=== PATIENT | female | born 1950 | race Caucasian/White ===

== ENCOUNTER 2017-01-10 11:50 | Observation (INO) | payer OTHER ==
[~2017-01-10 11:50] MED LIST: 1-ME1LIQ PO; ADVA250A INH; ALBU8I INH; ASPI81TA11 PO; ATOR80TA41 PO; FURO1TAB93 PO; IMDU60TA PO; LISI-363 PO; MONT10 PO; PROT40TA PO; THEO300T31 PO; ZOFR4TAB3 PO; ZOFR4TAB3 SL; ZOLO50TA PO
[2017-01-10 11:55] VITALS: BP 134/67; PULSE 102; RESP 18; TEMP 97.6; O2SAT 97
[2017-01-10] MEDS ORDERED: SODIUM CHLOR 0.9% 1000 ML INJ 1,000 ML IV ONE (12:06)
[2017-01-10] MEDS ORDERED: SODIUM CHLORIDE 0.9% FLUSH 10 ML FLUSH IVF PRN (12:15)
[2017-01-10] MEDS ORDERED: ONDANSETRON HCL 4 MG/2 ML VIAL IVP ONE (12:15)
--- NOTE | 2017-01-10 12:29 | PD ---
HPI Chief Complaint: Dizziness Time Seen by Provider: 11:55 Travel History International Travel<30 days: No Contact w/Intl Traveler<30days: No Traveled to known affect area: No History of Present Illness HPI 66yo F with COPD, CAD, AAA a/p repair present to the ED with c/o episode of syncope at 10am today. Pt states she woke up and was not feeling well. Has been feeling lightheaded. States she was sitting down at a restaurant with her aunt for rhonda and passed out. She states she vomited but does not remember vomiting. Her aunt states her lip looked swollen while the microbiological analyst said she was shaking. Unknown how long she had lost consciousness but she was still sitting in the chair so did not fall or hit her head. Denies any urinary or fecal incontinence. Denies any chest pain, abdominal pain, focal weakness or numbness, headache, visual changes. Pt feels a little sob but feels like she is at her baseline sob with her COPD. Denies any previous similar episodes PFSH Past Medical History AAA: Yes (PER PT "3.6mm" & REPAIRED) Arthritis: Yes (LUMBAR SPINE) Asthma: No Autoimmune Disease: No Heart Rhythm Problems: No Cancer: No Cardiac Catheterization: Yes Cardiovascular Problems: Yes High Cholesterol: Yes Chemotherapy: No Chest Pain: No Congestive Heart Failure: Yes COPD: Yes Cerebrovascular Accident: No Diabetes: No Diminished Hearing: No Endocrine: No Gastrointestinal Disorders: Yes GERD: No Genitourinary: Yes Hiatal Hernia: No Hypertension: Yes Immune Disorder: No Kidney Stones: No Musculoskeletal: Yes (CHRONIC BACK PAIN) Neurologic: No Psychiatric: No Reproductive: No Respiratory: Yes Migraines: No Myocardial Infarction: No Pancreatitis: Yes Radiation Therapy: No Renal Failure: No Seizures: No Sleep Apnea: No Ulcer: No Influenza Vaccination: No PNEUMOCCOCAL Vaccine (Year): 2008 ?: Not Menopausal: Yes Past Surgical History Abdominal Aneurysm Repair: Yes Abdominal Surgery: Yes (AORTIC STENT 2010, ) AICD: No Appendectomy: Yes Arteriovenous Shunt: No Body Medical Devices: LEFT ILLIAC ARTERY STENT, AORTIC STENT, CARDIAC STENT Cholecystectomy: Yes Coronary Stent: Yes (LAD) Ear Surgery: No Endocrine Surgery: No Eye Surgery: No Genitourinary Surgery: Yes (ILLIAC STENT LEFT SIDE 2005) Gynecologic Surgery: No Insulin Pump: No Joint Replacement: No Oral Surgery: No Pacemaker: No Thoracic Surgery: No Tonsillectomy: Yes Valve Replacement: Yes (ILIAC AND RENALSTENT ) Other Surgery: Yes Social History Alcohol Use: No Tobacco Use: Yes (1/2 PPD) Substance Use: No Allergies-Medications (Allergen,Severity, Reaction): Coded Allergies: Benadryl (Verified Allergy, Intermediate, Restlessness, 01/10/17) Pt states restless leg syndrome. Reported Meds & Prescriptions Reported Meds & Active Scripts Active Protonix (Pantoprazole Sodium) 40 Mg Tab 40 Mg PO DAILY 14 Days Zofran ODT (Ondansetron HCl) 4 Mg Tab 4 Mg SL Q6H PRN FOR NAUSEA/VOMITING Reported Breo Ellipta Inh (Fluticasone/Vilanterol) 100-25 Mcg/Act Inh 1 Puff INH DAILY Use daily at the same time. Theophylline ER 12 HR (Theophylline) 300 Mg Tab 300 Mg PO Q12H Protonix (Pantoprazole Sodium) 40 Mg Tab 40 Mg PO DAILY Montelukast (Montelukast Sodium) 10 Mg Tab 10 Mg PO HS Lisinopril 20 Mg Tab 20 Mg PO DAILY Isosorbide Mononitrate ER (Isosorbide Mononitrate) 60 Mg Tab 60 Mg PO DAILY Furosemide 40 Mg Tab 40 Mg PO DAILY Advair Diskus Inh (Fluticasone-Salmeterol Inh) 250-50 Mcg/Blist Aer 1 Puff INH BID Rinse mouth after use. Atorvastatin (Atorvastatin Calcium) 80 Mg Tab 80 Mg PO HS Aspirin Low Dose (Aspirin) 81 Mg Chew 81 Mg CHEW DAILY Montelukast Sodium 10 Mg Tab 10 Mg PO HS Lipitor 80 Mg Tab (Atorvastatin) 80 Mg Tab 1 Tab PO DAILY Aspirin EC 81 mg (Aspirin) 81 Mg Tab 81 Mg PO DAILY Fernando-Dur 300 Mg (Theophylline) 300 Mg Tabcr 300 Mg PO BID Zofran ODT (Ondansetron HCl) 4 Mg Tab 4 Mg PO TID PRN Zoloft (Sertraline HCl) 50 Mg Tab 50 Mg PO DAILY Ventolin Hfa (Albuterol Sulfate) 8 Gm Aero 1 Puff INH Q4 * SHAKE WELL BEFORE USE * 1-Methyl 2-Pyrrolidinone (1-Methyl 2-Pyrrolidone (Bulk)) 10 Mg Tab 10 Mg PO DAILY Lisinopril 20 mg (Lisinopril) 20 Mg Tab 20 Mg PO DAILY Lasix (Furosemide) 40 Mg Tab 40 Mg PO DAILY Imdur (Isosorbide Mononitrate) 60 Mg Tabcr 60 Mg PO DAILY Advair Diskus 250/50 (Salmeterol Xinafoate/Fluticasone) 250 Mcg/50 Mcg Inhp 1 Puff INH BID Review of Systems Except as stated in HPI: all other systems reviewed are Neg Physical Exam Narrative GENERAL: 66yo F not in distress. SKIN: Focused skin assessment warm/dry. HEAD: Atraumatic. Normocephalic. EYES: Pupils equal and round at 3mm bilaterally. EOMI. No scleral icterus. No injection or drainage. ENT: No nasal bleeding or discharge. Mucous membranes pink and moist. NECK: Trachea midline. No JVD. CARDIOVASCULAR: Regular rate and rhythm. No murmur appreciated. RESPIRATORY: No accessory muscle use. Clear to auscultation. Breath sounds equal bilaterally. GASTROINTESTINAL: Abdomen soft, non-tender, nondistended. MUSCULOSKELETAL: No obvious deformities. No clubbing. No cyanosis. No edema. NEUROLOGICAL: Awake and alert. No obvious cranial nerve deficits. Motor grossly within normal limits. Normal speech. PSYCHIATRIC: Appropriate mood and affect; insight and judgment normal. Data Data Last Documented VS Vital Signs Date Time Temp Pulse Resp B/P Pulse Ox O2 Delivery O2 Flow Rate FiO2 01/10/17 12:55 68 16 108/62 71 16 109/57 70 16 114/68 01/10/17 12:50 95 01/10/17 11:55 97.6 Orders Basic Metabolic Panel (Bmp) (01/10/17 12:06) Complete Blood Count With Diff (01/10/17 12:06) Ckmb (Isoenzyme) Profile (01/10/17 12:06) Troponin I (01/10/17 12:06) Act Partial Throm Time (Ptt) (01/10/17 12:06) Prothrombin Time / Inr (Pt) (01/10/17 12:06) Chest, Single Ap (01/10/17 12:06) Ct Brain W/O Iv Contrast(Rout) (01/10/17 12:06) Ecg Monitoring (01/10/17 12:06) Iv Access Insert/Monitor (01/10/17 12:06) Oximetry (01/10/17 12:06) Ondansetron Inj (Zofran Inj) (01/10/17 12:15) Sodium Chloride 0.9% Flush (Ns Flush) (01/10/17 12:15) Sodium Chlor 0.9% 1000 Ml Inj (Ns 1000 M (01/10/17 12:06) Orthostatic Vital Signs (01/10/17 12:06) Diet Heart Healthy (01/10/17 Lunch) Vital Signs (Adult) SAM.Q4H (01/10/17 13:36) Retail Sales Merchandiser Development / Telemetry SAM.Q8H (01/10/17 13:36) Neuro Checks . ORDERED (01/10/17 13:36) Ondansetron Inj (Zofran Inj) (01/10/17 13:45) Admit Order (Ed Use Only) (01/10/17 13:39) Labs Laboratory Tests Test 01/10/17 12:01 White Blood Count 10.9 TH/MM3 Red Blood Count 4.73 MIL/MM3 Hemoglobin 13.9 GM/DL Hematocrit 42.5 % Mean Corpuscular Volume 89.9 FL Mean Corpuscular Hemoglobin 29.5 PG Mean Corpuscular Hemoglobin 32.8 % Concent Red Cell Distribution Width 14.2 % Platelet Count 263 TH/MM3 Mean Platelet Volume 7.5 FL Neutrophils (%) (Auto) 77.1 % Lymphocytes (%) (Auto) 16.0 % Monocytes (%) (Auto) 4.9 % Eosinophils (%) (Auto) 0.8 % Basophils (%) (Auto) 1.2 % Neutrophils # (Auto) 8.5 TH/MM3 Lymphocytes # (Auto) 1.7 TH/MM3 Monocytes # (Auto) 0.5 TH/MM3 Eosinophils # (Auto) 0.1 TH/MM3 Basophils # (Auto) 0.1 TH/MM3 CBC Comment AUTO DIFF Differential Comment AUTO DIFF CONFIRMED Prothrombin Time 10.2 SEC Prothromb Time International 0.9 RATIO Ratio Activated Partial 23.3 SEC Thromboplast Time Sodium Level 139 MEQ/L Potassium Level 4.0 MEQ/L Chloride Level 105 MEQ/L Carbon Dioxide Level 27.0 MEQ/L Anion Gap 7 MEQ/L Blood Urea Nitrogen 21 MG/DL Creatinine 1.50 MG/DL Estimat Glomerular Filtration 35 ML/MIN Rate Random Glucose 118 MG/DL Calcium Level 8.6 MG/DL Total Creatine Kinase 69 U/L Troponin I LESS THAN 0.02 NG/ML MDM Medical Decision Making Medical Screen Exam Complete: Yes Emergency Medical Condition: Yes Interpretation(s) EKG: NSR 88bpm. Normal axis. QTc 427ms. Differential Diagnosis Arrhythmia vs. vasovagal syncope vs. seizure v. aortic insufficiency vs. dehydration Narrative Course 66yo F with episode of syncope. Labs reviewed, no leukocytosis. H/H stable. Troponin negative. BUN/creatinine mildly elevated but at baseline. CXR negative. CT brain showed no acute intracranial abnormality. I discussed with Dr. Wen and accepted to his service for syncope work up. However, pt misunderstood me and does not want to stay overnight. Said she has to go home because of her dog. AMA: The risks of leaving against medical advice without further evaluation treatment were discussed with the patient. These risks include cardiac dysfunction, cardiac dysrhythmia, possible heart attack, possible stroke or . The patient indicated understanding of these risks and appeared to have the capacity to make this decision. Diagnosis Primary Impression: Syncope Qualified Code: R55 - Syncope, unspecified syncope type Admitting Information Admitting Physician Requests: Observation Patient Instructions: General Instructions Departure Forms: Tests/Procedures Additional Instructions: Please return to the ED if you change your mind. Med/Other Pt SpecificInfo: No Change to Meds Disposition: 07 AGAINST MEDICAL ADVICE Condition: Stable Margot Mooney January 10, 2017 12:29
[2017-01-10] MEDS ORDERED: ISOS60TA PO (12:33)
[2017-01-10] MEDS ORDERED: FURO40TA PO (12:33)
[2017-01-10] MEDS ORDERED: LISI-515 PO (12:33)
[2017-01-10] MEDS ORDERED: ATOR1TAB18 PO (12:33)
[2017-01-10] MEDS ORDERED: FLUT1INH INH (12:33)
[2017-01-10] MEDS ORDERED: ADVA250A INH (12:33)
[2017-01-10] MEDS ORDERED: THEO300T30 PO (12:33)
[2017-01-10] MEDS ORDERED: MONT10TA4 PO (12:33)
[2017-01-10] MEDS ORDERED: PROT40TA PO (12:33)
[2017-01-10] MEDS ORDERED: ASPI81CH37 CHEW (12:33)
[2017-01-10 12:46] LABS: AUTOMATED NEUTROPHIL # 8.5 TH/MM3 (1.8-7.7); BASOPHIL # 0.1 TH/MM3 (0-0.2); BASOPHIL % 1.2 % (0.0-2.0); EOSINOPHIL # 0.1 TH/MM3 (0-0.4); EOSINOPHIL % 0.8 % (0.0-4.0); HEMATOCRIT 42.5 % (35.0-46.0); LYMPHOCYTE # 1.7 TH/MM3 (1.0-4.8); MEAN CELL VOLUME 89.9 FL (80.0-100.0); MEAN CORPUSCULAR HEMOGLOBIN 29.5 PG (27.0-34.0); MEAN CORPUSCULAR HGB CONC 32.8 % (32.0-36.0); MONO % 4.9 % (0.0-8.0); NEUT % 77.1 % (16.0-70.0); PLATELET COUNT 263 TH/MM3 (150-450); RED BLOOD COUNT 4.73 MIL/MM3 (4.00-5.30); RED CELL DISTRIBUTION WIDTH 14.2 % (11.6-17.2); WHITE BLOOD COUNT 10.9 TH/MM3 (4.0-11.0)
[2017-01-10 12:47] LABS: HEMO FLAGS AUTO DIFF
[2017-01-10 12:50] VITALS: O2SAT 95
[2017-01-10 12:52] LABS: CHLORIDE 105 MEQ/L (98-107); SODIUM (NA) 139 MEQ/L (136-145)
[2017-01-10 12:55] VITALS: BP_SYST 108; BP_SYST 109; BP_SYST 114; BP_DIAS 57; BP_DIAS 62; BP_DIAS 68; RESP 16
[2017-01-10 12:57] LABS: ANION GAP 7 MEQ/L (5-15); APTT (PATIENT) 23.3 SEC (24.3-30.1); BLOOD UREA NITROGEN 21 MG/DL (7-18); INTERNATIONAL NORMALIZED RATIO 0.9 RATIO; PROTHROMBIN TIME - PATIENT 10.2 SEC (9.8-11.6)
[2017-01-10 13:00] LABS: GLOMERULAR FILTRATION RATE 35 ML/MIN (>89)
[2017-01-10 13:07] LABS: SCAN/DIFF AUTO DIFF CONFIRMED
--- NOTE | 2017-01-10 13:07 | RADHPO ---
EXAM DATE/TIME: 01/10/2017 12:30 [facility] COMPARISON: No previous studies available for comparison. INDICATIONS : Dizziness. RADIATION DOSE: 69.77 CTDIvol (mGy) MEDICAL HISTORY : Hypertension. Chronic obstructive pulmonary disease. SURGICAL HISTORY : Appendectomy. Cholecystectomy. ENCOUNTER: Initial ACUITY: 1 day PAIN SCALE: 0/10 LOCATION: cranial TECHNIQUE: Multiple contiguous axial images were obtained of the head. Using automated exposure control and adj ustment of the mA and/or kV according to patient size, radiation dose was kept as low as reasonably a chievable to obtain optimal diagnostic quality images. FINDINGS: CEREBRUM: Ventricles are normal in size. There is mild periventricular white matter low attenuation most pronou nced in the frontal lobes. No evidence of midline shift, mass lesion, hemorrhage or acute infarction . No extra-axial fluid collections are seen. POSTERIOR FOSSA: The cerebellum and brainstem demonstrate no acute finding. The 4th ventricle is midline. The cerebe llopontine angle is unremarkable. EXTRACRANIAL: Visualized sinuses are clear. SKULL: The calvaria is intact. No evidence of skull fracture. CONCLUSION: 1. No acute intracranial abnormality identified. 2. There is periventricular white matter low attenuation characteristic of chronic microvascular isch emia. Henri Arnold MD on January 10, 2017 at 13:04 Board Certified Radiologist. This report was verified electronically.
[2017-01-10 13:08] LABS: CREATINE KINASE 69 U/L (26-192)
[2017-01-10] MEDS ORDERED: ONDANSETRON HCL 4 MG/2 ML VIAL IV PUSH PRN (13:45)
--- NOTE | 2017-01-10 13:45 | RADHPO ---
EXAM DATE/TIME: 01/10/2017 13:32 [facility] COMPARISON: CHEST SINGLE AP, June 13, 2014, 20:14. INDICATIONS : Shortness of breath. MEDICAL HISTORY : Chronic obstructive pulmonary disease. SURGICAL HISTORY : None. ENCOUNTER: Initial ACUITY: 1 day PAIN SCORE: 0/10 LOCATION: FINDINGS: Portable AP view of the chest demonstrates a normal-sized cardiac silhouette. There is stable interst itial prominence. No effusion, consolidation, or pneumothorax is visualized. Bones and soft tissues d emonstrate no acute finding. CONCLUSION: No acute cardiopulmonary abnormality is identified. Henri Arnold MD on January 10, 2017 at 13:43 Board Certified Radiologist. This report was verified electronically.
--- NOTE | 2017-01-11 08:31 | EKG ---
Date Performed: 01/10/2017 Time Performed: 11:48:28 PTAGE: 66 years EKG: Sinus rhythm Normal ECG PREVIOUS TRACING : 06/13/2014 20.07 No significant change from previous tracing noted. DOCTOR: Kev Kramer Interpretating Date/Time 01/11/2017 08:30:47
--- NOTE | 2017-01-20 23:52 | PD.AMA ---
Against Medical Advice Note Diagnosis: (1) Syncope Discharge Disposition: Against Medical Advice Pt Condition on Discharge: Fair AMA Statement Patient Kaitlin Noel has decided to leave the hospital against medical advice. This patient has the capacity to refuse care and understands the risks of leaving, including permanent disability and/or , and has had an opportunity to ask questions about her condition. The patient has been informed that she may return for care at any time, and follow up has been arranged/advised. Devan Wen MD Jan 20, 2017 23:52
== END 2017-01-10 14:21 | disposition left against medical advice (07) ==
LOC: PHED 11:50 → PHEDA 13:40
PROVIDERS: ADMIT Internal Medicine; ATTEND Internal Medicine
DX: R55 Syncope and collapse (principal); J44.9 Chronic obstructive pulmonary disease, unspecified; I25.10 Atherosclerotic heart disease of native coronary artery without angina pectoris; M47.816 Spondylosis without myelopathy or radiculopathy, lumbar region; I11.0 Hypertensive heart disease with heart failure; I50.9 Heart failure, unspecified; F17.200 Nicotine dependence, unspecified, uncomplicated; E78.00 Pure hypercholesterolemia, unspecified; Z95.5 Presence of coronary angioplasty implant and graft; Z88.8 Allergy status to other drugs, medicaments and biological substances; Z79.82 Long term (current) use of aspirin; Z79.51 Long term (current) use of inhaled steroids; R42 Dizziness and giddiness; R11.10 Vomiting, unspecified; M54.9 Dorsalgia, unspecified; G89.29 Other chronic pain; Z79.899 Other long term (current) drug therapy
CPT/HCPCS: 70450; 71010; 80048; 82550; 84484; 85025; 85610; 85730; 93005; 96374; 99285; G0378; J2405; J7030

== ENCOUNTER 2017-05-19 13:50 | Emergency (ER) | payer OTHER ==
[~2017-05-19] VITALS: Ht 167.6 cm; Wt 73.0 kg
[~2017-05-19 13:50] MED LIST changes: +ASPI81CH37 CHEW; +ATOR1TAB18 PO; +FLUT1INH INH; +FURO40TA PO; +ISOS60TA PO; +LISI-515 PO; +MONT10TA4 PO; +THEO300T30 PO
[2017-05-19 14:00] VITALS: BP 183/84; PULSE 94; RESP 16; TEMP 98.1; O2SAT 98
[2017-05-19] MEDS ORDERED: VITA100064 PO (14:06)
[2017-05-19] MEDS ORDERED: AMLO10TA2 PO (14:06)
--- NOTE | 2017-05-19 14:19 | PD ---
HPI Chief Complaint: Chest Pain Time Seen by Provider: 13:54 Travel History International Travel<30 days: No Contact w/Intl Traveler<30days: No Traveled to known affect area: No History of Present Illness HPI This 66-year-old female is complaining of left upper chest pain. She's been having the pain for about a week. The pain is located in the left upper chest. It is not related to exertion. It has been constant for a week She went to see her primary care physician today. An EKG was done at the office and they were concerned and asked her to come to the emergency department. The pain she has been having is fairly constant. It does get worse at times but she isn't been unable to figure out what it is that makes it worse. She does have a stent in her LAD. She has a stent in the left kidney and she is also had abdominal aortic aneurysm repaired. She says she has had pleurisy in the past and she thought that this may be pleurisy. PFSH Past Medical History AAA: Yes (PER PT "3.6mm" & REPAIRED) Arthritis: Yes (LUMBAR SPINE) Asthma: No Autoimmune Disease: No Heart Rhythm Problems: No Cancer: No Cardiac Catheterization: Yes Cardiovascular Problems: Yes High Cholesterol: Yes Chemotherapy: No Chest Pain: No Congestive Heart Failure: Yes COPD: Yes Cerebrovascular Accident: No Diabetes: No Diminished Hearing: No Endocrine: No Gastrointestinal Disorders: Yes GERD: No Genitourinary: Yes Hiatal Hernia: No Hypertension: Yes Immune Disorder: No Kidney Stones: No Musculoskeletal: Yes (CHRONIC BACK PAIN) Neurologic: No Psychiatric: No Reproductive: No Respiratory: Yes Migraines: No Myocardial Infarction: No Pancreatitis: Yes Radiation Therapy: No Renal Failure: No Seizures: No Sleep Apnea: No Ulcer: No Tetanus Vaccination: Unknown PNEUMOCCOCAL Vaccine (Year): 2008 ?: Not Menopausal: Yes Past Surgical History Abdominal Aneurysm Repair: Yes Abdominal Surgery: Yes (AORTIC STENT 2010, ) AICD: No Appendectomy: Yes Arteriovenous Shunt: No Body Medical Devices: LEFT ILLIAC ARTERY STENT, AORTIC STENT, CARDIAC STENT Cholecystectomy: Yes Coronary Stent: Yes (LAD) Ear Surgery: No Endocrine Surgery: No Eye Surgery: No Genitourinary Surgery: Yes (ILLIAC STENT LEFT SIDE 2005) Gynecologic Surgery: No Insulin Pump: No Joint Replacement: No Oral Surgery: No Pacemaker: No Thoracic Surgery: No Tonsillectomy: Yes Valve Replacement: Yes (ILIAC AND RENALSTENT ) Other Surgery: Yes Social History Alcohol Use: No Tobacco Use: Yes (1/2 PPD) Substance Use: No Allergies-Medications (Allergen,Severity, Reaction): Coded Allergies: diphenhydramine (Unverified Allergy, Intermediate, Restlessness, 05/19/17) Pt states restless leg syndrome. Reported Meds & Prescriptions Reported Meds & Active Scripts Active Reported Amlodipine (Amlodipine Besylate) 10 Mg Tab 10 Mg PO DAILY Vitamin D3 (Cholecalciferol) 1,000 Unit Tab 1,000 Units PO DAILY Breo Ellipta Inh (Fluticasone/Vilanterol) 100-25 Mcg/Act Inh 1 Puff INH DAILY Use daily at the same time. Theophylline ER 12 HR (Theophylline) 300 Mg Tab 300 Mg PO Q12H Protonix (Pantoprazole Sodium) 40 Mg Tab 40 Mg PO DAILY Montelukast (Montelukast Sodium) 10 Mg Tab 10 Mg PO HS Lisinopril 20 Mg Tab 20 Mg PO DAILY Isosorbide Mononitrate ER (Isosorbide Mononitrate) 60 Mg Tab 60 Mg PO DAILY Furosemide 40 Mg Tab 40 Mg PO DAILY Atorvastatin (Atorvastatin Calcium) 80 Mg Tab 80 Mg PO HS Aspirin Low Dose (Aspirin) 81 Mg Chew 81 Mg CHEW DAILY Review of Systems General / Constitutional: No: Fever, Chills Eyes: No: Diploplia, Blurred Vision HENT: No: Headaches, Vertigo Cardiovascular: No: Chest Pain or Discomfort, Palpitations Respiratory: No: Cough Gastrointestinal: No: Nausea, Vomiting Genitourinary: No: Urgency, Frequency Musculoskeletal: No: Myalgias, Arthralgias Skin: No Rash Neurologic: No: Weakness Physical Exam Narrative GENERAL: Well-developed female SKIN: Focused skin assessment warm/dry. HEAD: Atraumatic. Normocephalic. EYES: Pupils equal and round. No scleral icterus. No injection or drainage. ENT: No nasal bleeding or discharge. Mucous membranes pink and moist. NECK: Trachea midline. No JVD. CARDIOVASCULAR: Regular rate and rhythm. No murmur appreciated. There is no chest wall tenderness RESPIRATORY: No accessory muscle use. Clear to auscultation. Breath sounds equal bilaterally. GASTROINTESTINAL: Abdomen soft, non-tender, nondistended. Hepatic and splenic margins not palpable. MUSCULOSKELETAL: No obvious deformities. No clubbing. No cyanosis. No edema. NEUROLOGICAL: Awake and alert. No obvious cranial nerve deficits. Motor grossly within normal limits. Normal speech. PSYCHIATRIC: Appropriate mood and affect; insight and judgment normal. Data Data Last Documented VS Vital Signs Date Time Temp Pulse Resp B/P (MAP) Pulse Ox O2 Delivery O2 Flow Rate FiO2 05/19/17 14:07 82 16 99 Room Air 05/19/17 14:00 98.1 183/84 (117) Orders Orders Electrocardiogram (05/19/17 14:06) Complete Blood Count With Diff (05/19/17 14:06) Comprehensive Metabolic Panel (05/19/17 14:06) Troponin I (05/19/17 14:06) Chest, Pa & Lat (05/19/17 14:06) Labs Laboratory Tests Test 05/19/17 14:15 White Blood Count 8.1 TH/MM3 Red Blood Count 4.68 MIL/MM3 Hemoglobin 13.9 GM/DL Hematocrit 41.9 % Mean Corpuscular Volume 89.4 FL Mean Corpuscular Hemoglobin 29.6 PG Mean Corpuscular Hemoglobin Concent 33.1 % Red Cell Distribution Width 13.6 % Platelet Count 358 TH/MM3 Mean Platelet Volume 6.7 FL Neutrophils (%) (Auto) 59.8 % Lymphocytes (%) (Auto) 31.2 % Monocytes (%) (Auto) 6.5 % Eosinophils (%) (Auto) 2.3 % Basophils (%) (Auto) 0.2 % Neutrophils # (Auto) 4.9 TH/MM3 Lymphocytes # (Auto) 2.5 TH/MM3 Monocytes # (Auto) 0.5 TH/MM3 Eosinophils # (Auto) 0.2 TH/MM3 Basophils # (Auto) 0.0 TH/MM3 CBC Comment DIFF FINAL Differential Comment Blood Urea Nitrogen 16 MG/DL Creatinine 1.30 MG/DL Random Glucose 85 MG/DL Total Protein 7.9 GM/DL Albumin 3.5 GM/DL Calcium Level 9.0 MG/DL Alkaline Phosphatase 88 U/L Aspartate Amino Transf (AST/SGOT) 13 U/L Alanine Aminotransferase (ALT/SGPT) 16 U/L Total Bilirubin 0.2 MG/DL Sodium Level 135 MEQ/L Potassium Level 3.9 MEQ/L Chloride Level 104 MEQ/L Carbon Dioxide Level 24.8 MEQ/L Anion Gap 6 MEQ/L Estimat Glomerular Filtration Rate 41 ML/MIN Troponin I LESS THAN 0.02 NG/ML MDM Medical Decision Making Medical Screen Exam Complete: Yes Emergency Medical Condition: Yes Medical Record Reviewed: Yes Differential Diagnosis Differential includes coronary artery disease, pleurisy, atypical chest pain Narrative Course EKG shows sinus rhythm without acute changes. Troponin is normal. Chest x-ray is negative. Patient does not feel like this pain is related to her heart it has been going on for a week and has been fairly constant and she has normal studies. I doubt it is related to coronary artery disease. Chest pain admission was offered but the patient for her to go home and I think it is reasonable. He has been taking some Tylenol without much response. She cannot take anti-inflammatories. I will prescribe some Lortab Diagnosis Primary Impression: Atypical chest pain Scripts Hydrocodone-Acetaminophen (Lortab) 5-325 Mg Tab 1-2 TAB PO Q6H Y for PAIN, #20 TAB 0 Refills Prov: Arun Vila MD 05/19/17 Disposition: DISCHARGE HOME Condition: Stable Arun Vila MD May 19, 2017 14:19
[2017-05-19 14:37] LABS: CHLORIDE 104 MEQ/L (98-107); POTASSIUM 3.9 MEQ/L (3.5-5.1); SODIUM (NA) 135 MEQ/L (136-145)
[2017-05-19 14:41] LABS: ANION GAP 6 MEQ/L (5-15); BICARBONATE 24.8 MEQ/L (21.0-32.0); BLOOD UREA NITROGEN 16 MG/DL (7-18)
[2017-05-19 14:42] LABS: AUTOMATED NEUTROPHIL # 4.9 TH/MM3 (1.8-7.7); BASOPHIL % 0.2 % (0.0-2.0); EOSINOPHIL # 0.2 TH/MM3 (0-0.4); EOSINOPHIL % 2.3 % (0.0-4.0); HEMATOCRIT 41.9 % (35.0-46.0); HEMO FLAGS DIFF FINAL; LYMPH % 31.2 % (9.0-44.0); LYMPHOCYTE # 2.5 TH/MM3 (1.0-4.8); MEAN CELL VOLUME 89.4 FL (80.0-100.0); MEAN CORPUSCULAR HEMOGLOBIN 29.6 PG (27.0-34.0); MEAN CORPUSCULAR HGB CONC 33.1 % (32.0-36.0); MONO % 6.5 % (0.0-8.0); NEUT % 59.8 % (16.0-70.0); PLATELET COUNT 358 TH/MM3 (150-450); RED BLOOD COUNT 4.68 MIL/MM3 (4.00-5.30); RED CELL DISTRIBUTION WIDTH 13.6 % (11.6-17.2); WHITE BLOOD COUNT 8.1 TH/MM3 (4.0-11.0)
[2017-05-19 14:44] LABS: ALT (GPT) 16 U/L (10-53); AST (GOT) 13 U/L (15-37); GLOMERULAR FILTRATION RATE 41 ML/MIN (>89)
[2017-05-19 14:46] LABS: TOTAL BILIRUBIN ADULT 0.2 MG/DL (0.2-1.0)
[2017-05-19 14:47] LABS: ALKALINE PHOSPHATASE 88 U/L (45-117)
--- NOTE | 2017-05-19 14:48 | RADRPT ---
EXAM DATE/TIME: 05/19/2017 14:09 [facility] COMPARISON: CHEST PA & LAT, September 12, 2013, 12:38. INDICATIONS : Chest pain for one week. MEDICAL HISTORY : Hypertension. SURGICAL HISTORY : Triple A repair, Left kidney stent ENCOUNTER: Initial ACUITY: 1 week PAIN SCORE: 5/10 LOCATION: Left chest FINDINGS: PA and lateral views of the chest demonstrate the lungs to be symmetrically aerated without evidence of mass, infiltrate or effusion. The cardiomediastinal contours are unremarkable. Osseous structure s are intact with some degenerative spurring of the dorsal spine. CONCLUSION: No acute cardiopulmonary process. Joaquin Chavez MD on May 19, 2017 at 14:44 Board Certified Radiologist. This report was verified electronically.
[2017-05-19 15:00] VITALS: BP 166/76; PULSE 82; RESP 15; O2SAT 98
[2017-05-19] MEDS ORDERED: HYDR-3533 PO (15:05)
--- NOTE | 2017-05-20 12:56 | EKG ---
Date Performed: 05/19/2017 Time Performed: 14:16:37 PTAGE: 66 years EKG: Sinus rhythm Repolarization abnormality PREVIOUS TRACING : 05/19/2017 13.55 DOCTOR: Boaz Sandy Interpretating Date/Time 05/20/2017 12:55:52
--- NOTE | 2017-05-20 12:56 | EKG ---
Date Performed: 05/19/2017 Time Performed: 13:55:50 PTAGE: 66 years EKG: ECTOPIC ATRIAL RHYTHM POSSIBLE LEFT ATRIAL ENLARGEMENT BORDERLINE LEFT AXIS DEVIATION MODER ATE T-WAVE ABNORMALITY, CONSIDER LATERAL ISCHEMIA ABNORMAL ECG PREVIOUS TRACING : 01/10/2017 11.48 Compared to prior tracing no significant change DOCTOR: Boaz Sandy Interpretating Date/Time 05/20/2017 12:55:34
== END 2017-05-19 15:16 | disposition home or self-care (01) ==
LOC: PHED 13:50
DX: R07.89 Other chest pain (principal); I11.0 Hypertensive heart disease with heart failure; I50.9 Heart failure, unspecified; I71.4 Abdominal aortic aneurysm, without rupture; Z95.5 Presence of coronary angioplasty implant and graft; E78.00 Pure hypercholesterolemia, unspecified; J44.9 Chronic obstructive pulmonary disease, unspecified; K85.90 Acute pancreatitis without necrosis or infection, unspecified
CPT/HCPCS: 71020; 80053; 84484; 85025; 93005; 99285

== ENCOUNTER 2017-11-10 07:59 | Day surgery (SDC) | payer OTHER ==
[~2017-11-10] VITALS: Ht 167.6 cm; Wt 71.4 kg
[~2017-11-10 07:59] MED LIST changes: -1-ME1LIQ PO; -ADVA250A INH; -ALBU8I INH; +AMLO10TA2 PO; -ASPI81CH37 CHEW; +ASPI81CH6 CHEW; -ASPI81TA11 PO; -ATOR1TAB18 PO; -ATOR80TA41 PO; +ATOR80TA45 PO; -FURO1TAB93 PO; +HYDR-3533 PO; -IMDU60TA PO; -LISI-363 PO; -MONT10 PO; +THEO300T12 PO; -THEO300T30 PO; -THEO300T31 PO; +VITA100064 PO; -ZOFR4TAB3 PO; -ZOFR4TAB3 SL; -ZOLO50TA PO
[2017-11-10 08:40] VITALS: BP 144/82; PULSE 89; RESP 20; TEMP 97.5; O2SAT 96
[2017-11-10] MEDS ORDERED: MELA1TAB18 PO (08:43)
[2017-11-10] MEDS ORDERED: SODIUM CHLOR 0.9% 1000 ML INJ 1,000 ML IV SCH (09:30)
[2017-11-10 09:46] LABS: AUTOMATED NEUTROPHIL # 5.6 TH/MM3 (1.8-7.7); BASOPHIL # 0.1 TH/MM3 (0-0.2); BASOPHIL % 1.1 % (0.0-2.0); EOSINOPHIL # 0.2 TH/MM3 (0-0.4); EOSINOPHIL % 2.5 % (0.0-4.0); HEMATOCRIT 42.7 % (35.0-46.0); HEMOGLOBIN 14.2 GM/DL (11.6-15.3); LYMPH % 21.7 % (9.0-44.0); LYMPHOCYTE # 1.8 TH/MM3 (1.0-4.8); MEAN CELL VOLUME 89.7 FL (80.0-100.0); MEAN CORPUSCULAR HEMOGLOBIN 29.9 PG (27.0-34.0); MEAN CORPUSCULAR HGB CONC 33.3 % (32.0-36.0); MEAN PLATELET VOLUME 6.8 FL (7.0-11.0); MONO % 6.6 % (0.0-8.0); MONOCYTE # 0.5 TH/MM3 (0-0.9); NEUT % 68.1 % (16.0-70.0); PLATELET COUNT 336 TH/MM3 (150-450); RED BLOOD COUNT 4.76 MIL/MM3 (4.00-5.30); RED CELL DISTRIBUTION WIDTH 14.8 % (11.6-17.2); WHITE BLOOD COUNT 8.2 TH/MM3 (4.0-11.0)
[2017-11-10 09:56] LABS: PROTHROMBIN TIME - PATIENT 9.8 SEC (9.8-11.6)
--- NOTE | 2017-11-10 11:01 | RADRPT ---
EXAM DATE/TIME: 11/10/2017 10:14 [facility] COMPARISON: No previous studies available for comparison. INDICATIONS : Lung lesions. Evaluate for possible lung biopsies. RADIATION DOSE: 10.96 CTDIvol (mGy) MEDICAL HISTORY : Hypertension. Smoker SURGICAL HISTORY : Hysterectomy. Appendectomy.Cholecystectomy. ENCOUNTER: Initial ACUITY: 1 day PAIN SCALE: 0/10 LOCATION: chest TECHNIQUE: Volumetric scanning of the chest was performed. Using automated exposure control and adjustment of t he mA and/or kV according to patient size, radiation dose was kept as low as reasonably achievable to obtain optimal diagnostic quality images. DICOM format image data is available electronically for r eview and comparison. Follow-up recommendations for detected pulmonary nodules are based at a minimum on nodule size and pa tient risk factors according to Fleischner Society Guidelines. FINDINGS: Pre-biopsy CT scan of the chest confirms the presence of small bilateral pulmonary nodules. A 5.5 mm nodule is identified in the lingula of the left upper lobe. A 7 mm nodule is identified within the ri ght lower lobe. The lingular nodule demonstrated prominent overlying blood vessel. The right lower lo be nodule demonstrated overlying rib. CT guided percutaneous biopsy was not performed due to 2 difficult access of the pulmonary nodules. S hort-term followup in 3 months is recommended. CONCLUSION: 1. Small bilateral pulmonary nodules are deemed too small and inaccessible for biopsy at this time. 2. Short-term followup in 3 months for reevaluation is recommended. If there is interval enlargement of nodules then CT-guided biopsy can be rescheduled. 3. Decision making and findings were discussed with the patient. She acknowledges understanding and c onsents to delay and follow. Robert Phipps MD on November 10, 2017 at 10:53 Board Certified Radiologist. This report was verified electronically.
== END 2017-11-10 10:42 | disposition home or self-care (01) ==
LOC: HRAD 07:59 → HRIP 08:00 → HRAD 10:42
DX: R91.8 Other nonspecific abnormal finding of lung field (principal); I50.9 Heart failure, unspecified; I10 Essential (primary) hypertension; J44.9 Chronic obstructive pulmonary disease, unspecified
CPT/HCPCS: 71250; 85025; 85610; 85730; G0463; 99211

== ENCOUNTER 2017-11-16 09:42 | Day surgery (SDC) | payer OTHER ==
[2017-11-16] VITALS (8 sets, daily range): BP systolic 113–127; BP diastolic 63–78; PULSE 55–103; RESP 18–20; TEMP 98–98.5; O2SAT 92–97
[~2017-11-16] VITALS: Ht 167.6 cm; Wt 71.4 kg
[~2017-11-16 09:42] MED LIST changes: -FURO40TA PO; -HYDR-3533 PO; +MELA1TAB18 PO; -PROT40TA PO; -VITA100064 PO
[2017-11-16] MEDS ORDERED: LIDOCAINE HCL 1% 20 ML VIAL SQ ONE (09:43)
[2017-11-16] MEDS ORDERED: PROT40TA PO (10:03)
[2017-11-16] MEDS ORDERED: SODIUM CHLORIDE FLUSH PRN IV FLUSH (11:15)
[2017-11-16] MEDS ORDERED: SODIUM CHLOR 0.9% 1000 ML IV SCH (11:30)
[2017-11-16] MEDS ORDERED: fentaNYL CITRATE 250 MCG/5 ML AMP ONE (12:36)
[2017-11-16] MEDS ORDERED: MIDAZOLAM HCL 5 MG/5 ML VIAL ONE (12:36)
[2017-11-16] MEDS ORDERED: oxyCODONE/ACETAMINOPHEN 5 MG/325 MG TAB PO PRN (13:45)
--- NOTE | 2017-11-16 13:46 | PD.RAD ---
Post CT Procedure Prog Note Pre Procedure Diagnosis: (1) Lung nodules Post Procedure Diagnosis: (1) Lung nodules Procedure Date: Nov 16, 2017 Supervising Radiologist: Joaquin Chavez Anesthesia: Local, Analgesia, Conscious Sedation Plan of Activity Patient to Unit: ROPU Patient Condition: Good See PACS Report for procedural detail/treatment Biopsy Imaging Guidance: CT Side: Left Biopsy Procedure: Lung Specimen: Core Biopsy (20 gauge x 2) Joaquin Chavez MD Nov 16, 2017 13:46
--- NOTE | 2017-11-16 14:27 | RADRPT ---
EXAM DATE/TIME: 11/16/2017 13:00 [facility] COMPARISON: No previous studies available for comparison. INDICATIONS : Left lung lesion SEDATION TIME: 30 minutes BIOPSY SITE: Left Lung MEDICATION(S): 1.) 4 mg midazolam (Versed) IV DEVICE(S): 1.) 20 gauge clarita guide MEDICAL HISTORY : Hypertension. Chronic obstructive pulmonary disease. SURGICAL HISTORY : Abdominal aortic aneurysm repair. Cholecystectomy. ENCOUNTER: Initial ACUITY: 1 day PAIN SCORE: 0/10 LOCATION: chest A total of two core specimen(s) were obtained and sent to the laboratory for pathologic evaluation. PROCEDURE: 1. CT guided liverLeft biopsy. 2. Conscious sedation with continuous EKG and oximetry monitoring. Prior to the procedure informed consent was obtained. Any appropriate prior imaging studies were rev iewed. Using automated exposure control and adjustment of the mA and/or kV according to patient size, radiation dose was kept as low as reasonably achievable to obtain optimal diagnostic quality images. DICOM format image data is available electronically for review and comparison. The site was prepped in a sterile fashion. Full sterile technique was used, including cap, mask, chavo rile gloves and gown and a large sterile sheet. Hand hygiene and 2% chlorhexidine and/or betadine/al cohol prep was utilized per protocol for cutaneous antisepsis. The skin and subcutaneous tissues wer e infiltrated with local anesthetic solution. With CT guidance the previously identified target was localized. This is approximately 4-5 mm in diam eter. A Anton blunt needle was advanced to the edge of the lesion. 2 core biopsies were obtained wi th the 20 gauge device. Adequate hemostasis was obtained with compression at the puncture site. Follow-up CT scan reveals no pneumothorax. Conscious sedation was performed with the prescribed dosages and duration as above in the presence of an independent trained radiology nurse to assist in the monitoring of the patient. EKG and oximetry remained stable throughout the procedure. The patient tolerated the procedure well and there were no complications. The patient was sent to Radiology Outpatient Unit in stable condition. CONCLUSION: Uncomplicated CT guided biopsy. Joaquin Chavez MD on November 16, 2017 at 14:22 Board Certified Radiologist. This report was verified electronically.
--- NOTE | 2017-11-16 15:55 | RADRPT ---
EXAM DATE/TIME: 11/16/2017 14:55 [facility] COMPARISON: No previous studies available for comparison. INDICATIONS : Evaluate for pneumothorax. Post left lung biopsy. MEDICAL HISTORY : Hypertension. Chronic obstructive pulmonary disease. SURGICAL HISTORY : Abdominal aortic aneurysm repair. Cholecystectomy. ENCOUNTER: Subsequent ACUITY: 1 day PAIN SCORE: 0/10 LOCATION: Bilateral chest FINDINGS: Upright portable view of the chest demonstrates the lungs to be symmetrically aerated. No infiltrate seen. No evidence of pneumothorax. The heart is normal in size. CONCLUSION: No evidence of pneumothorax status post left lung biopsy. Vu Mars MD on November 16, 2017 at 15:52 Board Certified Radiologist. This report was verified electronically.
[2017-11-16] MEDS ORDERED: SODIUM CHLORIDE FLUSH BID IV FLUSH SCH (21:00)
== END 2017-11-16 17:00 | disposition home or self-care (01) ==
LOC: HRAD 09:42 → HRIP 09:45 → HRAD 17:00
DX: R91.1 Solitary pulmonary nodule (principal); R59.9 Enlarged lymph nodes, unspecified; J44.9 Chronic obstructive pulmonary disease, unspecified; I10 Essential (primary) hypertension
CPT/HCPCS: 32405; 71045; 77012; 88305; 88333; 99152; 99153; J2250; J3010

== ENCOUNTER 2018-02-04 15:10 | Emergency (ER) | payer OTHER ==
[~2018-02-04] VITALS: Ht 167.6 cm; Wt 71.6 kg
[~2018-02-04 15:10] MED LIST changes: +PROT40TA PO
[2018-02-04 15:14] VITALS: BP 111/55; PULSE 114; RESP 22; TEMP 98; O2SAT 92
[2018-02-04 15:25] VITALS: BP 103/56; PULSE 93; RESP 16; TEMP 98; O2SAT 91
[2018-02-04] MEDS: RESP: ALBUTEROL 2.5 MG/IPRATROPIUM 0.5 MG NEB (SCH) INH (15:57)
[2018-02-04 16:00] VITALS: BP 105/56; PULSE 82; RESP 16; O2SAT 96
[2018-02-04] MEDS ORDERED: CHERSYP2 PO (16:19)
[2018-02-04] MEDS ORDERED: PRED10 PO (16:19)
[2018-02-04] MEDS ORDERED: ZITH500T PO (16:19)
--- NOTE | 2018-02-04 16:19 | PD ---
HPI Chief Complaint: Cold / Flu Symptoms Time Seen by Provider: 15:44 Travel History International Travel<30 days: No Contact w/Intl Traveler<30days: No Traveled to known affect area: No History of Present Illness HPI Patient presents with complaints of nonproductive dry cough for 3 days. History of COPD. Denies nausea vomiting diarrhea or fever. No new rashes. Continues to smoke. Attempting nebulizers at home with little success. Reports baseline O2 sat at 96-97%. Satting today 93%. Denies any specific pain. Denies any alleviating or aggravating factors. History of lung nodules and CHF. PFSH Past Medical History AAA: Yes (PER PT "3.6mm" & REPAIRED) Arthritis: Yes (LUMBAR SPINE) Asthma: No Autoimmune Disease: No Heart Rhythm Problems: No Cancer: No Cardiac Catheterization: Yes Cardiovascular Problems: Yes (HTN, CAD) High Cholesterol: Yes Chemotherapy: No Chest Pain: No Congestive Heart Failure: Yes COPD: Yes Cerebrovascular Accident: No Coronary Artery Disease: Yes Diabetes: No Diminished Hearing: No Endocrine: No Gastrointestinal Disorders: Yes GERD: Yes Genitourinary: Yes Hiatal Hernia: No Hypertension: Yes Immune Disorder: No Kidney Stones: No Musculoskeletal: Yes (CHRONIC BACK PAIN) Neurologic: No Psychiatric: No Reproductive: No Respiratory: Yes (COPD) Immunizations Current: Yes Migraines: No Myocardial Infarction: No Pancreatitis: Yes Radiation Therapy: No Renal Failure: No Seizures: No Sleep Apnea: No Ulcer: No Tetanus Vaccination: > 5 Years Influenza Vaccination: Yes PNEUMOCCOCAL Vaccine (Year): 2008 ?: Not Menopausal: Yes Past Surgical History Abdominal Aneurysm Repair: Yes Abdominal Surgery: Yes (AORTIC STENT 2010, ) AICD: No Appendectomy: Yes Arteriovenous Shunt: No Body Medical Devices: LEFT ILLIAC ARTERY STENT, AORTIC STENT, CARDIAC STENT Cholecystectomy: Yes Coronary Stent: Yes (LAD) Ear Surgery: No Endocrine Surgery: No Eye Surgery: No Genitourinary Surgery: Yes (ILLIAC STENT LEFT SIDE 2005) Gynecologic Surgery: No Insulin Pump: No Joint Replacement: No Oral Surgery: No Pacemaker: No Thoracic Surgery: No Tonsillectomy: Yes Valve Replacement: Yes ( left ILIAC AND RENALSTENT ) Other Surgery: Yes Social History Alcohol Use: No Tobacco Use: Yes (1/2 PPD) Substance Use: No Allergies-Medications (Allergen,Severity, Reaction): Coded Allergies: diphenhydramine (Unverified Allergy, Intermediate, Restlessness, 02/04/18) Pt states restless leg syndrome. Reported Meds & Prescriptions Reported Meds & Active Scripts Active Reported Protonix (Pantoprazole Sodium) 40 Mg Tab 40 Mg PO DAILY Melatonin 10 Mg-1 Mg Tab 20 Mg PO HS PRN Amlodipine (Amlodipine Besylate) 10 Mg Tab 10 Mg PO DAILY Breo Ellipta Inh (Fluticasone/Vilanterol) 100-25 Mcg/Act Inh 1 Puff INH DAILY Use daily at the same time. Theophylline ER 12 HR (Theophylline) 300 Mg Tab 300 Mg PO Q12H Montelukast (Montelukast Sodium) 10 Mg Tab 10 Mg PO HS Lisinopril 20 Mg Tab 20 Mg PO DAILY Isosorbide Mononitrate ER (Isosorbide Mononitrate) 60 Mg Tab 60 Mg PO DAILY Atorvastatin (Atorvastatin Calcium) 80 Mg Tab 20 Mg PO HS Aspirin Low Dose (Aspirin) 81 Mg Chew 81 Mg CHEW DAILY Review of Systems General / Constitutional: No: Fever Eyes: No: Visual changes HENT: No: Headaches Cardiovascular: No: Chest Pain or Discomfort Respiratory: Positive: Cough, No: Shortness of Breath Gastrointestinal: No: Abdominal Pain Genitourinary: No: Dysuria Musculoskeletal: No: Pain Skin: No Rash Neurologic: No: Weakness Psychiatric: No: Depression Endocrine: No: Polydipsia Hematologic/Lymphatic: No: Easy Bruising Physical Exam Narrative GENERAL: Well-nourished, well-developed patient. SKIN: Focused skin assessment warm/dry. HEAD: Normocephalic. EYES: No scleral icterus. No injection or drainage. NECK: Supple, trachea midline. No JVD or lymphadenopathy. CARDIOVASCULAR: Regular rate and rhythm without murmurs, gallops, or rubs. RESPIRATORY: Breath sounds decreased but equal bilaterally. No accessory muscle use. End expiratory wheeze GASTROINTESTINAL: Abdomen soft, non-tender, nondistended. MUSCULOSKELETAL: No cyanosis, or edema. BACK: Nontender without obvious deformity. No CVA tenderness. Data Data Last Documented VS Vital Signs Date Time Temp Pulse Resp B/P (MAP) Pulse Ox O2 Delivery O2 Flow Rate FiO2 02/04/18 15:38 90 20 91 Room Air 02/04/18 15:25 98.0 103/56 (72) Orders Orders Albuterol-Ipratropium Neb (Duoneb Neb) (02/04/18 15:45) MDM Medical Decision Making Medical Screen Exam Complete: Yes Emergency Medical Condition: Yes Differential Diagnosis COPD exacerbation, pneumonia, bronchitis, tobacco abuse Narrative Course Assessment plan discussed the patient at bedside. Patient received 3 DuoNeb's with improvement of breath sounds. Diagnosis Primary Impression: COPD exacerbation Patient Instructions: General Instructions Med/Other Pt SpecificInfo: Prescription(s) given Scripts Guaifenesin-Codeine Liq (Cheratussin AC Liq) 100-10 Mg/5 Ml Syrp 10 ML PO Q4H Y for COUGH AND COLD SYMPTOMS, #120 ML 0 Refills Do not exceed 6 doses/24 hrs. Prov: Jarrod Johnson MD 02/04/18 Azithromycin (Zithromax) 500 Mg Tab 500 MG PO DAILY for Infection, #7 TAB 0 Refills Prov: Jarrod Johnson MD 02/04/18 Prednisone (Prednisone) 10 Mg Tab 10 MG PO DAILY for Cough, #20 TAB 0 Refills Prov: Jarrod Johnson MD 02/04/18 Disposition: 01 DISCHARGE HOME Condition: Good Jarrod Johnson MD Feb 04, 2018 16:19
[2018-02-04] MEDS ORDERED: ALBU6.7H INH (16:25)
[2018-02-04] MEDS ORDERED: ALBU.5I NEB (16:25)
[2018-02-04 16:30] VITALS: BP 108/53; PULSE 84; RESP 16; O2SAT 95
--- NOTE | 2018-02-04 16:47 | RADRPT ---
EXAM DATE: 02/04/2018 4:35 PM EDT AGE/SEX: 67 years / Female INDICATIONS: Short of breath CLINICAL DATA: This is the patient's initial encounter. Patient reports that signs and symptoms have been present for 1 day and indicates a pain score of 0/10. MEDICAL/SURGICAL HISTORY: Chronic obstructive pulmonary disease. None. COMPARISON: [facility], CHEST SINGLE AP, 01/10/2017. . FINDINGS: A single AP view of the chest demonstrates the lungs to be symmetrically aerated without evidence of mass, infiltrate or effusion. The cardiomediastinal contours are unremarkable. Osseous structures a re intact. CONCLUSION: No acute findings. Tortuous aorta. Electronically signed by: Edil Jimenes MD 02/04/2018 4:45 PM EDT
[2018-02-04 17:14] VITALS: BP 107/53
== END 2018-02-04 17:47 | disposition home or self-care (01) ==
LOC: PHED 15:10
DX: J44.1 Chronic obstructive pulmonary disease with (acute) exacerbation (principal); F17.210 Nicotine dependence, cigarettes, uncomplicated; I11.0 Hypertensive heart disease with heart failure; I25.10 Atherosclerotic heart disease of native coronary artery without angina pectoris
CPT/HCPCS: 71045; 94640; 94664; 99283